=== PATIENT | female | born 1990 | race Caucasian/White ===

== ENCOUNTER 2019-12-10 12:39 | Emergency (ER) | payer OTHER ==
[~2019-12-10] VITALS: Ht 182.9 cm; Wt 127.0 kg
[2019-12-10] MEDS ORDERED: COZAAR 25 MG TA25 M1 PO (12:55)
[2019-12-10] MEDS ORDERED: TOPAMAX100 MG PO (12:55)
[2019-12-10] MEDS ORDERED: VICTOZA0.6 MG/0.1 SUBQ (12:55)
[2019-12-10] MEDS ORDERED: GLUCOPHAGE1000 MG PO (12:55)
[2019-12-10] MEDS ORDERED: EFFEXOR XR150 MG PO (12:55)
[2019-12-10] MEDS ORDERED: IBUPROFEN 800800 MG PO (14:20)
[2019-12-10] MEDS ORDERED: FLEXERIL PO (14:20)
[2019-12-10] MEDS ORDERED: HYDROCODON-ACE1 EAC7 PO (14:20)
[2019-12-10 14:28] VITALS: BP 148/86
== END 2019-12-10 14:29 | disposition home or self-care (01) ==
LOC: M.ERS 12:39
DX: S20.229A Contusion of unspecified back wall of thorax, initial encounter (principal); M79.18 Myalgia, other site; E11.9 Type 2 diabetes mellitus without complications; I10 Essential (primary) hypertension; Z88.0 Allergy status to penicillin; F17.210 Nicotine dependence, cigarettes, uncomplicated; W10.8XXA Fall (on) (from) other stairs and steps, initial encounter; Y93.89 Activity, other specified; Y92.89 Other specified places as the place of occurrence of the external cause; Y99.8 Other external cause status

== ENCOUNTER 2020-08-22 01:03 | Emergency (ER) | payer OTHER ==
[~2020-08-22] VITALS: Ht 182.9 cm; Wt 129.3 kg
[~2020-08-22 01:03] MED LIST: COZAAR 25 MG TA25 M1 PO; EFFEXOR XR150 MG PO; FLEXERIL PO; GLUCOPHAGE1000 MG PO; HYDROCODON-ACE1 EAC7 PO; IBUPROFEN 800800 MG PO; TOPAMAX100 MG PO; VICTOZA0.6 MG/0.1 SUBQ
[2020-08-22] MEDS ORDERED: VITAMIN D310 MC4 PO (01:17)
[2020-08-22] MEDS ORDERED: GLIPIZIDE 10 MG10 MG PO (01:17)
[2020-08-22] MEDS ORDERED: SPIRONOLACTONE50 MG PO (01:17)
[2020-08-22] MEDS ORDERED: DESYREL150 MG PO (01:17)
[2020-08-22] MEDS ORDERED: APAP W/CODEINE1 TA2 PO (02:15)
[2020-08-22] MEDS ORDERED: IBUPROFEN 800800 MG PO (02:15)
[2020-08-22 02:22] VITALS: BP 128/76
== END 2020-08-22 02:23 | disposition home or self-care (01) ==
LOC: M.ERS 01:03
DX: K01.1 Impacted teeth (principal); K02.9 Dental caries, unspecified; I10 Essential (primary) hypertension; E11.9 Type 2 diabetes mellitus without complications; E28.2 Polycystic ovarian syndrome; F17.210 Nicotine dependence, cigarettes, uncomplicated; Z88.0 Allergy status to penicillin

== ENCOUNTER 2020-09-12 03:46 | Emergency (ER) | payer OTHER ==
[~2020-09-12] VITALS: Ht 182.9 cm; Wt 127.0 kg
[~2020-09-12 03:46] MED LIST changes: +APAP W/CODEINE1 TA2 PO; +DESYREL150 MG PO; +GLIPIZIDE 10 MG10 MG PO; +SPIRONOLACTONE50 MG PO; +VITAMIN D310 MC4 PO
[2020-09-12] MEDS ORDERED: NORCO 5-325 TA1 EAC2 PO (04:11)
[2020-09-12 04:27] VITALS: BP 120/64
== END 2020-09-12 04:27 | disposition home or self-care (01) ==
LOC: M.ERS 03:46
DX: M27.3 Alveolitis of jaws (principal); E11.9 Type 2 diabetes mellitus without complications; I10 Essential (primary) hypertension; Z88.0 Allergy status to penicillin

== ENCOUNTER 2021-12-07 14:50 | Emergency (ER) | payer OTHER ==
[~2021-12-07] VITALS: Ht 185.4 cm; Wt 127.0 kg
[~2021-12-07 14:50] MED LIST changes: +NORCO 5-325 TA1 EAC2 PO
[2021-12-07] MEDS ORDERED: TRAMADOL 50 MG50 MG PO (15:54)
[2021-12-07] MEDS ORDERED: PREDNISONE 20 M20 M1 PO (15:54)
[2021-12-07] MEDS ORDERED: ZPAK PO (15:54)
[2021-12-07 16:03] VITALS: BP 142/90
== END 2021-12-07 16:04 | disposition home or self-care (01) ==
LOC: M.ERS 14:50
DX: J06.9 Acute upper respiratory infection, unspecified (principal); E11.9 Type 2 diabetes mellitus without complications; I10 Essential (primary) hypertension; F32.9 Major depressive disorder, single episode, unspecified; F17.210 Nicotine dependence, cigarettes, uncomplicated; Z79.899 Other long term (current) drug therapy; Z88.0 Allergy status to penicillin

== ENCOUNTER 2021-12-30 22:30 | Emergency (ER) | payer OTHER ==
[~2021-12-30] VITALS: Ht 182.9 cm; Wt 124.7 kg
[~2021-12-30 22:30] MED LIST changes: +PREDNISONE 20 M20 M1 PO; +TRAMADOL 50 MG50 MG PO; +ZPAK PO
[2021-12-30] MEDS ORDERED: MEDROLDOSEPACK PO (23:40)
[2021-12-30 23:48] VITALS: BP 132/98
== END 2021-12-30 23:49 | disposition home or self-care (01) ==
LOC: M.ERS 22:30
DX: J02.9 Acute pharyngitis, unspecified (principal); H92.01 Otalgia, right ear; E11.9 Type 2 diabetes mellitus without complications; I10 Essential (primary) hypertension; F32.9 Major depressive disorder, single episode, unspecified; F17.210 Nicotine dependence, cigarettes, uncomplicated; Z87.42 Personal history of other diseases of the female genital tract; Z79.899 Other long term (current) drug therapy; Z88.0 Allergy status to penicillin

== ENCOUNTER 2022-01-04 09:45 | Emergency (ER) | payer OTHER ==
[~2022-01-04] VITALS: Ht 185.4 cm; Wt 124.7 kg
[~2022-01-04 09:45] MED LIST changes: +MEDROLDOSEPACK PO
[2022-01-04] MEDS ORDERED: CIPRO HC OTIC S10 ML OTIC (10:27)
[2022-01-04] MEDS ORDERED: DOXYCYCLINE 10100 MG PO (10:27)
[2022-01-04] MEDS ORDERED: DIFLUCAN150 M1 PO (10:31)
[2022-01-04 10:36] VITALS: BP 134/96
== END 2022-01-04 10:36 | disposition home or self-care (01) ==
LOC: M.ERS 09:45
DX: J32.9 Chronic sinusitis, unspecified (principal); H60.91 Unspecified otitis externa, right ear; E11.9 Type 2 diabetes mellitus without complications; I10 Essential (primary) hypertension; F32.9 Major depressive disorder, single episode, unspecified; F17.210 Nicotine dependence, cigarettes, uncomplicated; Z87.42 Personal history of other diseases of the female genital tract; Z79.899 Other long term (current) drug therapy; Z88.0 Allergy status to penicillin